=== PATIENT | male | born 2000 | race African-American/Black ===

== ENCOUNTER 2022-02-24 11:58 | Emergency (ER) | payer SELFPAY ==
[2022-02-24 12:35] VITALS: BP 111/74; PULSE 114; RESP 20; TEMP 97.3; BMI 40.3
[2022-02-24] MEDS ORDERED: DEXAMETHASONE SOD PHOSPHATE 10 MG/1 ML VIAL IM ONE (13:13)
[2022-02-24] MEDS ORDERED: AZITHROMYCIN 500 MG TABLET PO ONE (13:13)
[2022-02-24] MEDS ORDERED: AZITHROMYCIN 500 MG TABLET ONE (13:24)
[2022-02-24] MEDS ORDERED: DEXAMETHASONE SOD PHOSPHATE 10 MG/1 ML VIAL ONE (13:25)
== END 2022-02-24 13:57 | disposition home or self-care (01) ==
LOC: JER 11:58
PROC: 3E0233Z Introduction of Anti-inflammatory into Muscle, Percutaneous Approach (ICD-10-PCS; principal; 2022-02-24)
DX: J03.00 Acute streptococcal tonsillitis, unspecified (principal)
CPT/HCPCS: 87651; 99284-25; C9803-CS; U0003; U0005

== ENCOUNTER 2023-06-13 08:12 | Emergency (ER) | payer SELFPAY ==
[2023-06-13 08:25] VITALS: BMI 41.8
[2023-06-13] MEDS ORDERED: KETOROLAC TROMETHAMINE 15 MG/ML VIAL IVPUSH ONE (09:34)
[2023-06-13] MEDS ORDERED: DEXAMETHASONE SOD PHOSPHATE 10 MG/1 ML VIAL IVPUSH ONE (09:34)
[2023-06-13] MEDS ORDERED: KETOROLAC TROMETHAMINE 15 MG/ML VIAL ONE (09:36)
[2023-06-13] MEDS ORDERED: DEXAMETHASONE SOD PHOSPHATE 10 MG/1 ML VIAL ONE (09:36)
[2023-06-13] MEDS ORDERED: ALBUTEROL SO4 2.5/IPRATROPIUM 0.5 INH SOL 3 ML VIAL.NEB. NEB ONE ×2 (09:36→09:37)
[2023-06-13 10:01] LABS: BASO % 0.4 % (0-2.0); EOS % 0.6 % (0-4.5); HEMATOCRIT 44.2 % (35.4-49); HEMOGLOBIN 14.7 GM/dL (11.7-16.9); LYMPH % 13.3 % (8-40); MCH 28.7 pg (25.7-33.7); MCHC 33.4 g/dl (32.0-35.9); MEAN CELL VOLUME 86.2 fl (80-96); MEAN PLT VOLUME 9.1 fl (7.5-11.1); MONO % 7.6 % (3.8-10.2); NEUT % 78.1 % (42.8-82.8); PLATELET COUNT 312 10^3/uL (134-434); RBC 5.13 M/mm3 (4.00-5.60); RDW 14.8 % (11.9-15.9); WHITE BLOOD COUNT 18.4 K/mm3 (4.0-10.0)
[2023-06-13 10:23] LABS: POTASSIUM 4.3 mmol/L (3.5-5.1)
[2023-06-13 10:25] LABS: ALBUMIN 3.8 g/dl (3.4-5.0); BLOOD UREA NITROGEN 10.9 mg/dL (7-18); CALCIUM 9.7 mg/dL (8.5-10.1)
[2023-06-13 10:28] LABS: CREATININE 1.1 mg/dL (0.55-1.3)
[2023-06-13 10:30] LABS: TOT PROT 8.8 g/dl (6.4-8.2)
[2023-06-13] MEDS ORDERED: CLINDAMYCIN 600MG PREMIX IVPB 600 MG/50 ML BAG IVPB ONE ×2 (10:54→12:01)
[2023-06-13] MEDS ORDERED: CEFTRIAXONE 2,000 MG in DEXTROSE 5%-WATER - 50 ML IVPB ONE (10:54)
[2023-06-13] MEDS ORDERED: CEFTRIAXONE 2 GM/100 ML BAG IVPB ONE (10:59)
[2023-06-13 13:50] VITALS: BP 126/75; PULSE 88; RESP 16; TEMP 97.7
== END 2023-06-13 15:21 | disposition short-term general hospital (02) ==
LOC: JER 08:12 → JERFT 08:12
PROC: 3E03329 Introduction of Other Anti-infective into Peripheral Vein, Percutaneous Approach (ICD-10-PCS; principal; 2023-06-13)
PROC: 3E03329 Introduction of Other Anti-infective into Peripheral Vein, Percutaneous Approach (ICD-10-PCS; 2023-06-13)
PROC: 3E0333Z Introduction of Anti-inflammatory into Peripheral Vein, Percutaneous Approach (ICD-10-PCS; 2023-06-13)
PROC: 3E033GC Introduction of Other Therapeutic Substance into Peripheral Vein, Percutaneous Approach (ICD-10-PCS; 2023-06-13)
PROC: 3E0F7GC Introduction of Other Therapeutic Substance into Respiratory Tract, Via Natural or Artificial Opening (ICD-10-PCS; 2023-06-13)
DX: R07.0 Pain in throat (principal); R22.1 Localized swelling, mass and lump, neck; R07.89 Other chest pain
CPT/HCPCS: 36415; 70491-TC; 80053; 85025; 87651; 99285-25; J1100; Q9967